=== PATIENT | female | born 1965 | race Caucasian/White ===

== ENCOUNTER → 2016-10-01 | Outpatient (CLI) | payer OTHER | END | disposition home or self-care (01) | LOC: CFH 12:47 | PROVIDERS: ATTEND Nurse Practitioner Family | DX: N64.4 Mastodynia (principal) | CPT/HCPCS: 76641; G0204 ==

== ENCOUNTER → 2017-02-23 | Outpatient (CLI) | payer OTHER | END | disposition home or self-care (01) | LOC: CFH 12:37 | PROVIDERS: ATTEND Internal Medicine Cardiovascular Disease | DX: I25.9 Chronic ischemic heart disease, unspecified (principal); I10 Essential (primary) hypertension; I25.2 Old myocardial infarction | CPT/HCPCS: 78452; 93017; 93306; A9502 ==

== ENCOUNTER → 2017-02-23 | Outpatient (CLI) | payer OTHER | END | disposition home or self-care (01) | LOC: RAD 10:43 | PROVIDERS: ATTEND Internal Medicine Cardiovascular Disease | DX: R05 Cough (principal) | CPT/HCPCS: 71020 ==

== ENCOUNTER 2017-03-24 10:00 | Day surgery (SDC) | payer OTHER ==
[~2017-03-24] VITALS: Ht 170.2 cm; Wt 79.5 kg
[2017-03-24 10:22] VITALS: BP 133/79
[2017-03-24] MEDS ORDERED: ROSU20TA PO (10:42)
[2017-03-24] MEDS ORDERED: DICL100G19 TP (10:42)
[2017-03-24] MEDS ORDERED: SERT100T5 PO (10:42)
[2017-03-24] MEDS ORDERED: NITR0.4T28 SL (10:42)
[2017-03-24] MEDS ORDERED: ASPI-496 PO (10:42)
[2017-03-24] MEDS ORDERED: PROM25SU34 RC (10:42)
[2017-03-24] MEDS ORDERED: GABA300C10 PO (10:42)
[2017-03-24] MEDS ORDERED: ONDA8TAB9 PO (10:42)
[2017-03-24] MEDS ORDERED: LEVO112T2 PO (10:42)
[2017-03-24] MEDS ORDERED: DILT360C PO (10:42)
[2017-03-24] MEDS ORDERED: CLON-365 PO (10:42)
[2017-03-24] MEDS ORDERED: POTA20TA6 PO (10:42)
[2017-03-24 10:47] LABS: HEMATOCRIT 39.2 % (34.6-47.8); HEMOGLOBIN 13.1 g/dL (11.7-16.4); WHITE BLOOD COUNT 6.2 x10^3/uL (3.4-10)
[2017-03-24 11:01] LABS: ASPARTATE AMINO TRANSFERASE 22 U/L (15-37); BLOOD UREA NITROGEN 22 mg/dL (7-18)
[2017-03-24] MEDS ORDERED: FENTANYL PF 100 MCG/2ML ONE (11:24)
[2017-03-24] MEDS ORDERED: MIDAZOLAM 1 MG/ML, 5ML ONE (11:24)
[2017-03-24] MEDS ORDERED: LIDOCAINE 2%, 20ML ONE (11:24)
[2017-03-24] MEDS ORDERED: RANO500T2 PO (12:34)
== END 2017-03-24 16:14 | disposition home or self-care (01) ==
LOC: CACL 10:00
PROVIDERS: ATTEND Internal Medicine Cardiovascular Disease
DX: I25.119 Atherosclerotic heart disease of native coronary artery with unspecified angina pectoris (principal); I10 Essential (primary) hypertension; I25.2 Old myocardial infarction; E78.2 Mixed hyperlipidemia; E03.9 Hypothyroidism, unspecified; Z79.82 Long term (current) use of aspirin; Z88.0 Allergy status to penicillin
CPT/HCPCS: 36415; 80053; 85025; 93005; 93458; 99156; C1894; J2250; J3010; J3490; Q9967

== ENCOUNTER 2019-05-07 07:59 | Emergency (ER) | payer MEDICAID ==
[~2019-05-07] VITALS: Ht 170.2 cm; Wt 82.4 kg
[~2019-05-07 07:59] MED LIST: ASPI-496 PO; CLON1TAB11 PO; DICL100G19 TP; DILT360C PO; GABA300C10 PO; LEVO112T2 PO; NITR0.4T28 SL; ONDA8TAB9 PO; POTA20TA6 PO; PROM25SU34 RC; RANO500T2 PO; ROSU20TA2 PO; SERT100T32 PO
[2019-05-07 08:10] VITALS: BP 136/86
--- NOTE | 2019-05-07 08:44 | NUR ---
PT HERE FOR LEFT EYE SWELLING/DRAINAGE THAT STARTED LAST NIGHT AND IS WORSE TODAY. DENIES TRAUMA.
== END 2019-05-07 09:12 | disposition home or self-care (01) ==
LOC: ED 08:52
DX: H04.322 Acute dacryocystitis of left lacrimal passage (principal)
CPT/HCPCS: 99283

== ENCOUNTER → 2020-05-21 | Outpatient (CLI) | payer MEDICAID | END | disposition home or self-care (01) | LOC: CFH 09:41 | PROVIDERS: ATTEND Internal Medicine Cardiovascular Disease | DX: J96.91 Respiratory failure, unspecified with hypoxia (principal); M48.56XA Collapsed vertebra, not elsewhere classified, lumbar region, initial encounter for fracture; I25.2 Old myocardial infarction; I25.119 Atherosclerotic heart disease of native coronary artery with unspecified angina pectoris; I10 Essential (primary) hypertension; E78.2 Mixed hyperlipidemia; E03.9 Hypothyroidism, unspecified | CPT/HCPCS: 71046 ==